=== PATIENT | male | born 1955 | race Caucasian/White ===

== ENCOUNTER 2021-01-11 05:55 | Day surgery (SDC) | payer MEDICARE ==
[2021-01-10 14:39] VITALS: BMI 35.3
[2021-01-11] MEDS ORDERED: Lidocaine 1% MPF 2 ML VIAL ONE (06:25)
[2021-01-11] MEDS ORDERED: Lidocaine 2% MPF 10 ML AMP (For Epidural Use) ONE (07:14)
[2021-01-11] MEDS ORDERED: PROPOFOL 40 ML ONE ×3 (07:14→08:21)
[2021-01-11] MEDS ORDERED: PHENYLEPHRINE-NS 100 MCG/ML 10 ML SYRINGE ONE (07:57)
== END 2021-01-11 09:20 | disposition home or self-care (01) ==
LOC: CSHSDC 05:55
PROVIDERS: ATTEND Internal Medicine Gastroenterology
PROC: 0DBL8ZZ Excision of Transverse Colon, Via Natural or Artificial Opening Endoscopic (ICD-10-PCS; principal; 2021-01-11)
DX: Z12.11 Encounter for screening for malignant neoplasm of colon (principal); D12.3 Benign neoplasm of transverse colon; K64.9 Unspecified hemorrhoids; F32.9 Major depressive disorder, single episode, unspecified; I10 Essential (primary) hypertension; E03.9 Hypothyroidism, unspecified; E11.9 Type 2 diabetes mellitus without complications; G47.30 Sleep apnea, unspecified; E66.9 Obesity, unspecified
CPT/HCPCS: 36416; 88305; J2704

== ENCOUNTER 2021-01-21 15:05 | Inpatient (IN) | payer OTHER, MEDICARE ==
[2021-01-21] MEDS ORDERED: Acetaminophen 500 MG TAB ONE (15:30)
[2021-01-21] MEDS ORDERED: Boostrix 0.5 ML (Tdap) VIAL ONE (15:31)
[2021-01-21] MEDS ORDERED: Acetaminophen 325 MG TAB PO PRN (18:19)
[2021-01-21] MEDS ORDERED: Ondansetron PF 4 MG/2 ML Vial IVP PRN (18:19)
[2021-01-21] MEDS ORDERED: CEFAZOLIN 1 GM in Sodium Chloride 0.9% 100 ML IVPB SCH (18:37)
[2021-01-21 19:01] LABS: #Basophils 0.1 10x3/uL (0.0-0.2); #Eosinphils 0.1 10x3/uL (0.0-0.5); #Neutrophils 7.5 10x3/uL (1.5-8.4); %Basophils 0.5 % (0.0-2.0); %Lymphocytes 20.2 % (18.0-47.0); %Monocytes 9.1 % (0.0-10.0); %Neutrophils 68.4 % (40.0-75.0); Mean Corpuscular Hemoglobin 31.2 pg (27.0-33.0); Mean Corpuscular Volume 94.3 fl (81.2-95.1); Mean Platelet Volume 8.8 fl (7.4-10.4); Platelet Count 160 10x3/uL (150-450); RBC Distribution Width 13.9 % (11.5-14.5); Red Blood Cell (RBC) Count 3.53 10x6/uL (4.32-5.72); White Blood Cell (WBC) Count 10.9 10x3/uL (3.5-10.5)
[2021-01-21 19:16] LABS: ALT (SGPT) 40 U/L (8-55); AST (SGOT) 71 U/L (5-34); Albumin 3.9 g/dL (3.4-4.8); Alkaline Phosphatase 61 U/L (40-110); Anion Gap 14 mmol/L (10-20); BUN (Urea Nitrogen) 11 mg/dL (8.4-25.7); Bilirubin, Total 0.7 mg/dL (0.2-1.2); Calc. Creatinine Clearance 0 mL/min (70-130); Calcium 8.4 mg/dL (7.8-10.44); Carbon Dioxide 25 mmol/L (23-31); Chloride 103 mmol/L (98-107); Globulin 2.6 g/dL (2.4-3.5); Glucose 191 mg/dL (80-115); Protein, Total 6.5 g/dL (5.8-8.1); Sodium 138 mmol/L (136-145)
[2021-01-21] MEDS ORDERED: Enoxaparin Sodium 40 MG/0.4 ML SYRINGE SC SCH (20:30)
[2021-01-21] MEDS: HYDROcodone/Acetaminophen 5/325 mg Tablet PO PRN (22:00)
[2021-01-21] MEDS: CEFAZOLIN 2 GM in Premix Bag 1 BAG IVPB SCH (22:00)
[2021-01-22 00:50] LABS: Bilirubin Neg (Negative); Blood, Urine 250 (Negative); Clarity Slightly Cloudy (Clear); Glucose, Urine (Dipstick) 250 mg/dL (Negative); Ketone, Urine 5 mg/dL (Negative); Leukocyte Negative (Negative); Nitrite Negative (Negative); Protein, Urine (Dipstick) 30 mg/dl (Neg-Trace); Specific Gravity, Urine 1.015 (1.002-1.036); Urobilinogen Normal mg/dL (Less than 2)
[2021-01-22 01:05] LABS: Bacteria/HPF None Seen HPF (None Seen); Mucous/LPF None Seen LPF (<2+); Renal Epithelial 0-3 HPF (None Seen); Squamous Epithelial None Seen HPF (0-3); WBC/HPF 0-3 HPF (0-3)
[2021-01-22 01:29] VITALS: BMI 35.3
[2021-01-22] MEDS: HYDROcodone/Acetaminophen 5/325 mg Tablet PO PRN ×5 (04:08→21:52)
[2021-01-22] MEDS: CEFAZOLIN 2 GM in Premix Bag 1 BAG IVPB SCH ×3 (06:21→22:41)
[2021-01-22] MEDS: hydrALAZINE 20 MG/ML VIAL SLOW IVP PRN ×3 (06:50→18:01)
[2021-01-22] MEDS: Enoxaparin Sodium 40 MG/0.4 ML SYRINGE SC SCH (08:13)
[2021-01-22] MEDS: metFORMIN 500 MG TAB PO SCH ×2 (09:22→21:51)
[2021-01-22] MEDS: Aspirin Chewable 81 MG TAB PO SCH (09:22)
[2021-01-22] MEDS: glipiZIDE 5 MG TAB PO SCH (09:24)
[2021-01-22] MEDS: Losartan Potassium 50 MG TAB PO SCH (09:24)
[2021-01-22] MEDS: Loratadine 10 MG TAB PO SCH (09:24)
[2021-01-22] MEDS: Aripiprazole 10 MG TAB PO SCH (09:25)
[2021-01-22] MEDS: hydrALAZINE 25 MG TAB PO SCH ×2 (09:28→21:52)
[2021-01-22 11:19] LABS: Hemoglobin A1c 7.9 % (4.0-6.0)
[2021-01-22 14:28] LABS: SARS-CoV-2 PCR by NAA Not Detected (NotDetected)
[2021-01-22] MEDS: Atorvastatin Calcium 20 MG TAB PO SCH (21:53)
[2021-01-23] MEDS: hydrALAZINE 20 MG/ML VIAL SLOW IVP PRN (03:50)
[2021-01-23] MEDS: CEFAZOLIN 2 GM in Premix Bag 1 BAG IVPB SCH ×3 (06:45→21:00)
[2021-01-23] MEDS: Levothyroxine 150 MCG TAB PO SCH (06:46)
[2021-01-23] MEDS: HYDROcodone/Acetaminophen 5/325 mg Tablet PO PRN ×5 (06:46→20:53)
[2021-01-23 08:23] LABS: #Basophils 0.1 10x3/uL (0.0-0.2); #Eosinphils 0.1 10x3/uL (0.0-0.5); #Neutrophils 8.2 10x3/uL (1.5-8.4); %Basophils 0.5 % (0.0-2.0); %Eosinophils 1.1 % (0.0-6.0); %Lymphocytes 14.4 % (18.0-47.0); %Monocytes 8.7 % (0.0-10.0); %Neutrophils 74.7 % (40.0-75.0); Hemoglobin 10.8 g/dL (13.5-17.5); Mean Corpuscular Hemoglobin 30.9 pg (27.0-33.0); Mean Corpuscular Volume 93.4 fl (81.2-95.1); Mean Platelet Volume 9.6 fl (7.4-10.4); Platelet Count 154 10x3/uL (150-450); RBC Distribution Width 14.2 % (11.5-14.5); White Blood Cell (WBC) Count 10.9 10x3/uL (3.5-10.5)
[2021-01-23] MEDS: Enoxaparin Sodium 40 MG/0.4 ML SYRINGE SC SCH (08:28)
[2021-01-23] MEDS: metFORMIN 500 MG TAB PO SCH ×2 (08:29→20:55)
[2021-01-23] MEDS: Aspirin Chewable 81 MG TAB PO SCH (08:29)
[2021-01-23] MEDS: Aripiprazole 10 MG TAB PO SCH (08:30)
[2021-01-23] MEDS: Loratadine 10 MG TAB PO SCH (08:30)
[2021-01-23] MEDS: hydrALAZINE 25 MG TAB PO SCH ×2 (08:32→20:53)
[2021-01-23] MEDS: NIFEdipine XL 60 MG TAB PO SCH (08:32)
[2021-01-23] MEDS: Losartan Potassium 50 MG TAB PO SCH (08:32)
[2021-01-23] MEDS: glipiZIDE 5 MG TAB PO SCH (08:32)
[2021-01-23] MEDS ORDERED: Bisacodyl 10 MG SUPP PR PRN (10:44)
[2021-01-23] MEDS ORDERED: Docusate 100 MG CAP PO SCH (11:00)
[2021-01-23] MEDS ORDERED: Polyethylene Glycol 3350 17 GM Packet PO SCH (11:00)
[2021-01-23] MEDS: Docusate 100 MG CAP PO SCH (20:55)
[2021-01-23] MEDS: Atorvastatin Calcium 20 MG TAB PO SCH (20:55)
[2021-01-24] MEDS: Levothyroxine 150 MCG TAB PO SCH (05:24)
[2021-01-24] MEDS: CEFAZOLIN 2 GM in Premix Bag 1 BAG IVPB SCH (07:46)
[2021-01-24] MEDS: Docusate 100 MG CAP PO SCH ×2 (08:53→21:25)
[2021-01-24] MEDS: Aspirin Chewable 81 MG TAB PO SCH (08:53)
[2021-01-24] MEDS: Aripiprazole 10 MG TAB PO SCH (08:53)
[2021-01-24] MEDS: Losartan Potassium 50 MG TAB PO SCH (08:54)
[2021-01-24] MEDS: NIFEdipine XL 60 MG TAB PO SCH (08:54)
[2021-01-24] MEDS: metFORMIN 500 MG TAB PO SCH ×2 (08:55→21:24)
[2021-01-24] MEDS: hydrALAZINE 25 MG TAB PO SCH ×4 (08:55→21:24)
[2021-01-24] MEDS: glipiZIDE 5 MG TAB PO SCH (08:55)
[2021-01-24] MEDS: Loratadine 10 MG TAB PO SCH (08:56)
[2021-01-24] MEDS: Enoxaparin Sodium 40 MG/0.4 ML SYRINGE SC SCH (08:56)
[2021-01-24] MEDS: Polyethylene Glycol 3350 17 GM Packet PO SCH (10:12)
[2021-01-24] MEDS ORDERED: Polyvinyl Alcohol 1.4%/Povidone 0.6% Opth Drops EA EYE PRN (11:29)
[2021-01-24] MEDS: HYDROcodone/Acetaminophen 5/325 mg Tablet PO PRN ×3 (12:32→22:31)
[2021-01-24] MEDS: Atorvastatin Calcium 20 MG TAB PO SCH (21:24)
[2021-01-25] MEDS: Levothyroxine 150 MCG TAB PO SCH (06:10)
[2021-01-25] MEDS: Aripiprazole 10 MG TAB PO SCH (08:25)
[2021-01-25] MEDS: Polyethylene Glycol 3350 17 GM Packet PO SCH (08:25)
[2021-01-25] MEDS: Enoxaparin Sodium 40 MG/0.4 ML SYRINGE SC SCH (08:25)
[2021-01-25] MEDS: HYDROcodone/Acetaminophen 5/325 mg Tablet PO PRN ×2 (08:26→13:13)
[2021-01-25] MEDS: glipiZIDE 5 MG TAB PO SCH (08:26)
[2021-01-25] MEDS: NIFEdipine XL 60 MG TAB PO SCH (08:26)
[2021-01-25] MEDS: Aspirin Chewable 81 MG TAB PO SCH (08:26)
[2021-01-25] MEDS: Docusate 100 MG CAP PO SCH (08:26)
[2021-01-25] MEDS: hydrALAZINE 25 MG TAB PO SCH ×2 (08:27→16:18)
[2021-01-25] MEDS: Losartan Potassium 50 MG TAB PO SCH (08:27)
[2021-01-25] MEDS: metFORMIN 500 MG TAB PO SCH (08:27)
[2021-01-25] MEDS: Loratadine 10 MG TAB PO SCH (08:27)
[2021-01-25 11:35] VITALS: TEMP 98.2
[2021-01-25 16:19] VITALS: BP 159/75
== END 2021-01-25 16:27 | disposition home or self-care (01) | DRG 563 ==
LOC: CSHERS 15:05 → CSHTELE 15:06 → UNDOADMOB 15:06 → CSHTELE 18:19 → OBSVTOIN 01-24 17:05
PROVIDERS: ADMIT Internal Medicine; ATTEND Internal Medicine
PROC: 2W3HX1Z Immobilization of Left Thumb using Splint (ICD-10-PCS; principal; 2021-01-24)
DX: S42.211A Unspecified displaced fracture of surgical neck of right humerus, initial encounter for closed fracture (principal); S62.522B Displaced fracture of distal phalanx of left thumb, initial encounter for open fracture; Z20.822 Contact with and (suspected) exposure to COVID-19; I10 Essential (primary) hypertension; E11.9 Type 2 diabetes mellitus without complications; E03.9 Hypothyroidism, unspecified; Z96.641 Presence of right artificial hip joint; S66.202A Unspecified injury of extensor muscle, fascia and tendon of left thumb at wrist and hand level, initial encounter; E66.9 Obesity, unspecified; W01.0XXA Fall on same level from slipping, tripping and stumbling without subsequent striking against object, initial encounter; Z79.82 Long term (current) use of aspirin; Z79.84 Long term (current) use of oral hypoglycemic drugs; Z79.899 Other long term (current) drug therapy; Z90.49 Acquired absence of other specified parts of digestive tract; Z98.890 Other specified postprocedural states; Z87.891 Personal history of nicotine dependence; Z68.35 Body mass index [BMI] 35.0-35.9, adult
CPT/HCPCS: 29130; 36415; 36416; 80053; 81001; 83036; 85025; 90471; 90715; 94660; 94760; 96372; 96374; 96375; 96376; G0378; J0360; J0690; J1650; J2405; U0003; U0005

== ENCOUNTER 2021-05-21 19:43 | Emergency (ER) | payer MEDICARE | END 2021-05-21 21:44 | disposition home or self-care (01) | LOC: CSHERS 19:43 | DX: M25.562 Pain in left knee (principal); E11.9 Type 2 diabetes mellitus without complications; E03.9 Hypothyroidism, unspecified; I10 Essential (primary) hypertension; G47.30 Sleep apnea, unspecified; Z79.899 Other long term (current) drug therapy; Z79.84 Long term (current) use of oral hypoglycemic drugs ==